=== PATIENT | male | born 1930 | race Hispanic/Latino ===

== ENCOUNTER 2020-03-30 15:18 | Inpatient (IN) | payer MEDICARE ==
[~2020-03-30] VITALS: Ht 180.3 cm; Wt 74.9 kg
[2020-03-30 15:44] LABS: BASOPHILS % (AUTO) 0.5 % (0.0-5.0); EOSINOPHILS % (AUTO) 2.1 % (0.0-8.0); HEMATOCRIT 28.6 % (42-54); LYMPHOCYTES % (AUTO) 16.8 % (21.0-51.0); MEAN CORPUSCULAR HEMOGLOBIN 29.4 pg (27.0-33.0); MEAN CORPUSCULAR HGB CONC 32.2 g/dL (32.0-36.0); MEAN CORPUSCULAR VOLUME 91.4 fL (79-99); MONOCYTES % (AUTO) 12.2 % (3.0-13.0); NEUTROPHILS % (AUTO) 68.1 % (40.0-77.0); PLATELET COUNT (AUTO) 224 K/uL (130-400); RED BLOOD CELL COUNT(AUTO) 3.13 MIL/uL (4.50-6.20); RED CELL DISTRIBUTION WIDTH 17.5 % (11.0-15.5); WHITE BLOOD COUNT (AUTO) 5.8 K/uL (4.8-10.8)
[2020-03-30 15:54] LABS: CREATININE 1.2 mg/dL (0.5-1.5); POTASSIUM 4.1 mmol/L (3.5-5.1)
[2020-03-30 15:57] LABS: INR 1.13 (0.85-1.15); PARTIAL THROMBOPLASTIN TIME 27.5 SEC (26.3-35.5); PROTHROMBIN TIME 12.1 SEC (9.6-11.6)
[2020-03-30 15:58] LABS: BILIRUBIN,TOTAL 0.3 mg/dL (0.2-1.0)
[2020-03-30] MEDS ORDERED: ACETAMINOPHEN 325 MG TAB PO PRN (19:00)
[2020-03-30] MEDS ORDERED: ONDANSETRON HCL 4 MG/2 ML VIAL IV PRN (19:00)
[2020-03-30] MEDS ORDERED: FAMOTIDINE 20MG TAB 20 MG TAB ONE (20:40)
[2020-03-30 22:22] VITALS: BP 164/99
[2020-03-31] VITALS (26 sets, daily range): BP systolic 117–148; BP diastolic 67–120
[2020-03-31] MEDS ORDERED: FERR-82 PO (00:47)
[2020-03-31] MEDS ORDERED: AEC81 PO (00:47)
[2020-03-31] MEDS ORDERED: TAMS-1 PO (00:47)
[2020-03-31] MEDS ORDERED: ATOR10 PO (00:47)
[2020-03-31] MEDS ORDERED: CHOL500051 PO (00:47)
[2020-03-31] MEDS ORDERED: MULT-1289 PO (00:47)
[2020-03-31] MEDS ORDERED: LATA7.5D OP (00:47)
[2020-03-31] MEDS ORDERED: DORZ10DR9 OU (00:47)
[2020-03-31] MEDS ORDERED: FURO20TA4 PO (00:47)
[2020-03-31] MEDS ORDERED: ASCO100031 PO (00:47)
[2020-03-31] MEDS ORDERED: NITR100C PO (00:47)
[2020-03-31] MEDS ORDERED: CYAN25002 PO (00:47)
[2020-03-31] MEDS ORDERED: LOSA100T58 PO (00:47)
[2020-03-31] MEDS ORDERED: FINA5TAB41 PO (00:47)
[2020-03-31] MEDS ORDERED: LEVO75TA10 PO (00:47)
[2020-03-31] MEDS ORDERED: POTA-9 PO (00:47)
[2020-03-31 05:03] LABS: BASOPHILS % (AUTO) 0.8 % (0.0-5.0); HEMATOCRIT 28.3 % (42-54); MEAN CORPUSCULAR HEMOGLOBIN 29.1 pg (27.0-33.0); MEAN CORPUSCULAR HGB CONC 32.2 g/dL (32.0-36.0); MEAN CORPUSCULAR VOLUME 90.4 fL (79-99); MONOCYTES % (AUTO) 14.8 % (3.0-13.0); NEUTROPHILS % (AUTO) 63.2 % (40.0-77.0); PLATELET COUNT (AUTO) 223 K/uL (130-400); RED BLOOD CELL COUNT(AUTO) 3.13 MIL/uL (4.50-6.20); RED CELL DISTRIBUTION WIDTH 17.6 % (11.0-15.5); WHITE BLOOD COUNT (AUTO) 6.2 K/uL (4.8-10.8)
[2020-03-31 05:18] LABS: CREATININE 1.1 mg/dL (0.5-1.5); POTASSIUM 3.8 mmol/L (3.5-5.1)
--- NOTE | 2020-03-31 08:15 | NUR ---
[facility] CONSULT DR. JJ ELECTRICAL SUBCONTRACTOR FOR [facility]. CHARLES ROSALES TO [facility] ANSWERING SERVICE AND INFORMED OF CONSULT. INFORMED THAT PATIENT SEES DR. ANJELICA WILKINS AN OUTPATIENT.
[2020-03-31] MEDS: CHOLECALCIFEROL 125 MCG PO SCH (09:00)
[2020-03-31] MEDS ORDERED: ASPIRIN 81 MG EC TAB PO SCH (09:00)
[2020-03-31] MEDS: DORZOLAMIDE HCL 2% 10ML DROPS OU SCH ×2 (09:08→20:09)
[2020-03-31] MEDS: FAMOTIDINE 20MG TAB 20 MG TAB PO SCH (09:09)
[2020-03-31] MEDS: MULTIVITAMIN WITH MINERALS TABLET PO SCH (09:11)
[2020-03-31] MEDS: LEVOTHYROXINE 75 MCG TABLET PO SCH (09:12)
[2020-03-31] MEDS: ASCORBIC ACID 500 MG TAB PO SCH (09:12)
[2020-03-31] MEDS: FERROUS SULFATE 325 MG TABLET.DR PO SCH (09:12)
[2020-03-31] MEDS: LOSARTAN 100 MG TABLET PO SCH (09:12)
[2020-03-31] MEDS: CYANOCOBALAMIN (VITAMIN B-12) 1,000 MCG TABLET PO SCH (09:12)
[2020-03-31] MEDS: FUROSEMIDE 20 MG TABLET PO SCH (09:12)
--- NOTE | 2020-03-31 10:00 | NUR ---
GODWIN BELLAMY PA FOR DR. JJ ROUNDING AT THIS TIME
--- NOTE | 2020-03-31 11:45 | NUR ---
NURSE FOR DR. LAURA RODRÍGUEZ, NURSE FOR DR. SANCHEZ HERE TO SEE PATIENT. INFORMED ME THAT SHE SPOKE TO PATIENT REGARDING PROCEDURE AND THAT IF PATIENTS DAUGHTER HAD ANY QUESTIONS WHEN SHE ARRIVES THAT IT IS OKAY TO CALL ANNE WITH QUESTIONS PATIENTS DAUGHTER MAY HAVE.
[2020-03-31] MEDS: CEFTRIAXONE SODIUM 1 GM IVP SCH (12:24)
--- NOTE | 2020-03-31 12:25 | NUR ---
PATIENT FAMILY CALLED PATIENTS DAUGHTER, Emir TAMEZ [phone], TO ASK WHEN SHE WOULD ARRIVE TO BE PRESENT WHEN PATIENT SIGNS INFORMED CONSENT DUE TO PATIENTS AGE. Emir TAMEZ TOLD ME THAT SHE WAS ON HER WAY TO THE HOSPITAL NOW.
[2020-03-31] MEDS ORDERED: ONDANSETRON HCL 4 MG/2 ML VIAL ONE (12:32)
[2020-03-31] MEDS ORDERED: LIDOCAINE PF 2% 5ML ABBOJECT ONE (12:32)
[2020-03-31] MEDS ORDERED: FENTANYL CITRATE PF 50 MCG/1 ML 2ML VIAL ONE (12:33)
[2020-03-31] MEDS ORDERED: DEXAMETHASONE SOD PHOSPHATE 10MG/ML 1ML VIAL ONE (12:33)
[2020-03-31] MEDS ORDERED: MIDAZOLAM HCL 1 MG/ML 2ML VIAL ONE (12:33)
[2020-03-31] MEDS ORDERED: PROPOFOL 10 MG/ML 20ML VIAL IV ONE (12:33)
[2020-03-31] MEDS ORDERED: SUCCINYLCHOLINE CHLORIDE 20 MG/ML 10 ML VIAL ONE (12:34)
[2020-03-31] MEDS ORDERED: ALBUMIN (HUMAN) 25% 150 ML IV ONE (12:34)
[2020-03-31] MEDS ORDERED: ROCURONIUM 10MG/1ML SYR 10 MG/ML ML ONE (12:37)
[2020-03-31] MEDS ORDERED: LACTATED RINGERS 1000ML 1,000 ML IV ONE (13:05)
[2020-03-31] MEDS: CEFAZOLIN SODIUM 1 GM VIAL IVP PRN ×2 (13:08→13:45)
[2020-03-31] MEDS ORDERED: MEPERIDINE-PF 25 MG/ML SYG ONE (13:43)
[2020-03-31] MEDS ORDERED: EPHEDRINE SULFATE 50 MG/ML AMPULE ONE (13:56)
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
--- NOTE | 2020-03-31 15:10 | NUR ---
LEFT RADIAL ARTERIAL LINE D/C'D PER [facility] PHYSICIAN RELATIONS REPRESENTATIVE ORDER, PRESSURE HELD X5 MINUTES, NO BLEEDING NOTED, PT TOLERATED WELL
[2020-03-31 16:44] LABS: PH, BODY FLUID 8
[2020-03-31 16:53] LABS: AMYLASE,BODY FLUID 67 U/L; GLUCOSE,BODY FLUID 83 mg/dL (1-40)
[2020-03-31 17:16] LABS: APPEARANCE BODY FLUID BLOODY (CLEAR); COLOR,BODY FLUID RED (LT YELLOW); SPECIMENTYPE,BODY FLUID PERICARDIAL; TOTAL VOLUME,BODY FLUID 90 mL
[2020-03-31 17:18] LABS: BODY FLUID WBC 237 /cu. mm.
[2020-03-31 17:24] LABS: BF EOSINOPHIL 8 %; BF LYMPHOCYTE 62 %
--- NOTE | 2020-03-31 18:10 | NUR ---
PAGED HOSPITALIST PATIENT REPORTS PAIN 8/10 TO INCISION SITE. NEED PRN PAIN MED FOR REPORTED PAIN SCALE
[2020-03-31] MEDS: MORPHINE SULFATE 2 MG/ML 1ML SYG IVP PRN ×2 (18:20→20:08)
--- NOTE | 2020-03-31 18:55 | NUR ---
HEART RHYTHM RECEIVED CALL FROM Hello Curry THAT PATIENT HR IN THE 110'S, HIGHEST 120. PATIENT ASYMPTOMATIC. REPORTED FINDINGS TO Geoffrey SALDANA NP.
--- NOTE | 2020-03-31 19:15 | NUR ---
12 LEAD EKG SPOKE TO Geoffrey SALDANA NP FOR HOSPITALIST TO REPORT 12 LEAD EKG RESULTS. REPLIED TO MONITOR FOR NOW.
[2020-03-31] MEDS: ATORVASTATIN CALCIUM 10 MG TABLET PO SCH (20:08)
[2020-03-31] MEDS: FINASTERIDE 5 MG TABLET PO SCH (20:08)
[2020-03-31] MEDS: TAMSULOSIN HCL 0.4 MG CAP.ER.24H PO SCH (20:08)
[2020-03-31] MEDS: LATANOPROST 2.5 ML DROPS OP SCH (20:09)
[2020-03-31] MEDS ORDERED: HYDROMORPHONE HCL 2 MG/ML VIAL ONE (20:54)
[2020-03-31] MEDS: HYDROMORPHONE HCL 0.5 MG/0.5 ML ML IVP PRN (23:06)
[2020-04-01] VITALS: BP 101/62
[2020-04-01 04:10] VITALS: BP 96/57
[2020-04-01 06:12] LABS: BASOPHILS % (AUTO) 0.1 % (0.0-5.0); HEMATOCRIT 27.4 % (42-54); MEAN CORPUSCULAR HEMOGLOBIN 28.9 pg (27.0-33.0); MEAN CORPUSCULAR HGB CONC 32.1 g/dL (32.0-36.0); MEAN CORPUSCULAR VOLUME 89.8 fL (79-99); MONOCYTES % (AUTO) 11.7 % (3.0-13.0); NEUTROPHILS % (AUTO) 78.7 % (40.0-77.0); PLATELET COUNT (AUTO) 243 K/uL (130-400); RED BLOOD CELL COUNT(AUTO) 3.05 MIL/uL (4.50-6.20); RED CELL DISTRIBUTION WIDTH 17.7 % (11.0-15.5); WHITE BLOOD COUNT (AUTO) 10.4 K/uL (4.8-10.8)
[2020-04-01 06:42] LABS: CREATININE 1.5 mg/dL (0.5-1.5); POTASSIUM 4.2 mmol/L (3.5-5.1); TROPONIN I 0.07 ng/mL (0.00-0.06)
[2020-04-01] MEDS: LEVOTHYROXINE 75 MCG TABLET PO SCH (06:43)
[2020-04-01 08:00] VITALS: BP 102/68
[2020-04-01] MEDS: ASCORBIC ACID 500 MG TAB PO SCH (08:51)
[2020-04-01] MEDS: CYANOCOBALAMIN (VITAMIN B-12) 1,000 MCG TABLET PO SCH (08:51)
[2020-04-01] MEDS: FERROUS SULFATE 325 MG TABLET.DR PO SCH (08:51)
[2020-04-01] MEDS: MULTIVITAMIN WITH MINERALS TABLET PO SCH (08:51)
[2020-04-01] MEDS: FAMOTIDINE 20MG TAB 20 MG TAB PO SCH (08:51)
[2020-04-01] MEDS: CHOLECALCIFEROL 125 MCG PO SCH (08:52)
[2020-04-01] MEDS: DORZOLAMIDE HCL 2% 10ML DROPS OU SCH ×2 (08:52→20:29)
[2020-04-01] MEDS: FUROSEMIDE 20 MG TABLET PO SCH (09:00)
[2020-04-01] MEDS: LOSARTAN 100 MG TABLET PO SCH (09:00)
[2020-04-01] MEDS ORDERED: CEFTRIAXONE SODIUM 500 MG VIAL IV SCH (09:00)
[2020-04-01] MEDS ORDERED: DOCUSATE SODIUM 100 MG CAP PO SCH (11:15)
--- NOTE | 2020-04-01 11:25 | NUR ---
1105 pt signed IM Letter, I faxed IM Letter to [phone] and placed in chart under consent tab.
[2020-04-01 11:30] VITALS: BP 85/54
[2020-04-01] MEDS: CEFTRIAXONE SODIUM 1 GM IVP SCH (13:50)
[2020-04-01 16:00] VITALS: BP 92/52
[2020-04-01] MEDS: LACTULOSE 20 GM/30 ML UDCUP PO PRN (18:50)
[2020-04-01 19:10] VITALS: BP 126/76
[2020-04-01] MEDS: ATORVASTATIN CALCIUM 10 MG TABLET PO SCH (20:29)
[2020-04-01] MEDS: TAMSULOSIN HCL 0.4 MG CAP.ER.24H PO SCH (20:29)
[2020-04-01] MEDS: FINASTERIDE 5 MG TABLET PO SCH (20:29)
[2020-04-01] MEDS: LATANOPROST 2.5 ML DROPS OP SCH (20:29)
[2020-04-02] VITALS (7 sets, daily range): BP systolic 93–120; BP diastolic 40–70
--- NOTE | 2020-04-02 03:35 | NUR ---
PATIENT A/OX3. RESTING IN BED. DENIES CHEST PAIN OR SOB. ON ROOM AIR. CHEST TUBE IN PLACE WITH SEROSANGUINEOUS DRAINAGE. WILL CONTINUE TO MONITOR. CALL LIGHT WITHIN PLACE. ROOM ACROSS NURSES STATION.
[2020-04-02 03:45] LABS: BASOPHILS % (AUTO) 0.3 % (0.0-5.0); EOSINOPHILS % (AUTO) 0.9 % (0.0-8.0); HEMATOCRIT 28.4 % (42-54); LYMPHOCYTES % (AUTO) 14.3 % (21.0-51.0); MEAN CORPUSCULAR HEMOGLOBIN 28.8 pg (27.0-33.0); MEAN CORPUSCULAR HGB CONC 32.4 g/dL (32.0-36.0); MEAN CORPUSCULAR VOLUME 88.8 fL (79-99); NEUTROPHILS % (AUTO) 69.1 % (40.0-77.0); PLATELET COUNT (AUTO) 233 K/uL (130-400); RED CELL DISTRIBUTION WIDTH 18.1 % (11.0-15.5); WHITE BLOOD COUNT (AUTO) 9.1 K/uL (4.8-10.8)
[2020-04-02 04:03] LABS: ALBUMIN 2.8 g/dL (3.5-5.0); BILIRUBIN,TOTAL 0.3 mg/dL (0.2-1.0); CREATININE 1.5 mg/dL (0.5-1.5); POTASSIUM 3.7 mmol/L (3.5-5.1); TOTAL PROTEIN, SERUM 8.3 g/dL (6.0-8.3)
[2020-04-02] MEDS: LEVOTHYROXINE 75 MCG TABLET PO SCH (06:16)
[2020-04-02] MEDS: HYDROMORPHONE HCL 0.5 MG/0.5 ML ML IVP PRN (06:19)
[2020-04-02] MEDS: FAMOTIDINE 20MG TAB 20 MG TAB PO SCH (07:17)
[2020-04-02] MEDS: FUROSEMIDE 20 MG TABLET PO SCH (07:17)
[2020-04-02] MEDS: ASCORBIC ACID 500 MG TAB PO SCH (07:17)
[2020-04-02] MEDS: CHOLECALCIFEROL 125 MCG PO SCH (07:17)
[2020-04-02] MEDS: CYANOCOBALAMIN (VITAMIN B-12) 1,000 MCG TABLET PO SCH (07:17)
[2020-04-02] MEDS: FERROUS SULFATE 325 MG TABLET.DR PO SCH (07:17)
[2020-04-02] MEDS: MULTIVITAMIN WITH MINERALS TABLET PO SCH (07:17)
[2020-04-02] MEDS: DORZOLAMIDE HCL 2% 10ML DROPS OU SCH ×2 (07:18→21:58)
[2020-04-02] MEDS: LOSARTAN 100 MG TABLET PO SCH (07:18)
--- NOTE | 2020-04-02 08:00 | NUR ---
ASSESSMENT PT IS AAOX3 DENIES CP DENIES SOB DENIES NV NO COMPLAINTS AT THIS TIME. SITTING UPRIGHT IN BED, LEFT CHEST TUBE IS IN PLACE, SECURED TO [employer] COLLECTION. NO CREPITUS NOTED NO AIR LEAK NOTED. AM MEDS GIVEN. CALL LIGHT WITHIN REACH.
--- NOTE | 2020-04-02 08:30 | NUR ---
AM COZAAR NOT GIVEN DECREASED BP. PT REMAINS AAOX3 DENIES DIZZINESS DENIES LIGHTHEADEDNESS.
[2020-04-02] MEDS: CEFTRIAXONE SODIUM 1 GM IVP SCH (10:43)
[2020-04-02] MEDS: LACTULOSE 20 GM/30 ML UDCUP PO PRN (10:43)
[2020-04-02] MEDS ORDERED: SIMETHICONE 80 MG TAB.CHEW PO PRN (11:00)
--- NOTE | 2020-04-02 11:00 | NUR ---
MD ROUNDS DR DRUMMOND AND DR MENARD ROUNDED
--- NOTE | 2020-04-02 14:41 | NUR ---
DR WAN ROUNDED SAW PATIENT, MAINTAIN CHEST TUBE IN PLACE
--- NOTE | 2020-04-02 16:30 | NUR ---
ASSISTED UP TO BEDSIDE COMMODE PATIENT PASSED GAS, NO BM. ASSISTED BACK TO BED. CALL LIGHT WITHIN REACH.
[2020-04-02] MEDS: TAMSULOSIN HCL 0.4 MG CAP.ER.24H PO SCH (21:57)
[2020-04-02] MEDS: FINASTERIDE 5 MG TABLET PO SCH (21:57)
[2020-04-02] MEDS: MORPHINE SULFATE 2 MG/ML 1ML SYG IVP PRN (21:57)
[2020-04-02] MEDS: ATORVASTATIN CALCIUM 10 MG TABLET PO SCH (21:57)
[2020-04-02] MEDS: LATANOPROST 2.5 ML DROPS OP SCH (21:58)
[2020-04-03 03:25] VITALS: BP 118/70
[2020-04-03 06:25] LABS: BASOPHILS % (AUTO) 0.4 % (0.0-5.0); HEMATOCRIT 28.8 % (42-54); MEAN CORPUSCULAR HEMOGLOBIN 29.1 pg (27.0-33.0); MEAN CORPUSCULAR HGB CONC 31.9 g/dL (32.0-36.0); MEAN CORPUSCULAR VOLUME 91.1 fL (79-99); MONOCYTES % (AUTO) 16.4 % (3.0-13.0); NEUTROPHILS % (AUTO) 61.8 % (40.0-77.0); PLATELET COUNT (AUTO) 257 K/uL (130-400); RED BLOOD CELL COUNT(AUTO) 3.16 MIL/uL (4.50-6.20); RED CELL DISTRIBUTION WIDTH 18.4 % (11.0-15.5); WHITE BLOOD COUNT (AUTO) 8.1 K/uL (4.8-10.8)
[2020-04-03 06:33] LABS: ALBUMIN 2.7 g/dL (3.5-5.0); BILIRUBIN,TOTAL 0.4 mg/dL (0.2-1.0); CREATININE 1.3 mg/dL (0.5-1.5); POTASSIUM 3.5 mmol/L (3.5-5.1); TOTAL PROTEIN, SERUM 8.2 g/dL (6.0-8.3)
[2020-04-03] MEDS: LEVOTHYROXINE 75 MCG TABLET PO SCH (06:51)
[2020-04-03 08:00] VITALS: BP 102/42
[2020-04-03] MEDS: FAMOTIDINE 20MG TAB 20 MG TAB PO SCH (08:45)
[2020-04-03] MEDS: LOSARTAN 50 MG TABLET PO SCH (08:45)
[2020-04-03] MEDS: FERROUS SULFATE 325 MG TABLET.DR PO SCH (08:45)
[2020-04-03] MEDS: ASCORBIC ACID 500 MG TAB PO SCH (08:45)
[2020-04-03] MEDS: CYANOCOBALAMIN (VITAMIN B-12) 1,000 MCG TABLET PO SCH (08:46)
[2020-04-03] MEDS: METOPROLOL TARTRATE 25 MG TAB PO SCH ×2 (08:46→20:53)
[2020-04-03] MEDS: FUROSEMIDE 20 MG TABLET PO SCH (08:46)
[2020-04-03] MEDS: MULTIVITAMIN WITH MINERALS TABLET PO SCH (08:46)
[2020-04-03] MEDS: CHOLECALCIFEROL 125 MCG PO SCH (08:46)
[2020-04-03] MEDS: DORZOLAMIDE HCL 2% 10ML DROPS OU SCH ×2 (08:49→20:48)
[2020-04-03] MEDS: LACTULOSE 20 GM/30 ML UDCUP PO PRN (08:52)
--- NOTE | 2020-04-03 10:51 | NUR ---
DR. Tamar MEYERS IN ROOM SPEAKING WITH PT. RE:PLAN OF CARE. QUESTIONS ANSWERED. MALE VISITOR AT BEDSIDE.
[2020-04-03] MEDS ORDERED: MINERAL OIL 30 ML UDCUP PO SCH (11:00)
[2020-04-03] MEDS: CEFTRIAXONE SODIUM 1 GM IVP SCH (11:01)
[2020-04-03 12:00] VITALS: BP 95/55
[2020-04-03] MEDS: MORPHINE SULFATE 2 MG/ML 1ML SYG IVP PRN (12:51)
--- NOTE | 2020-04-03 13:10 | NUR ---
CHEST TUBE REMOVED AFTER PT. ASSISTED BACK TO BED, INSTRUCTED ON PROCEDURE AND PREMEDICATED. C.T. REMOVED WITH ASSISTANCE FROM Dione YOU, PCP. PT. TOLERATED WELL. LIGHT DRSG APPLIED. CALL LIGHT WITHIN REACH, VERBALIZED ABILITY TO USE. BED LOW, SIDE RAILS UP X2.
--- NOTE | 2020-04-03 14:43 | NUR ---
CM NOTE/DC PLAN NEW ORDER FOR SNF REFERRAL. MET WITH PATIENT AT BEDSIDE TO DISCUSS DC PLANNING. PATIENT MADE AWARE OF PT RECOMMENDATIONS FOR SNF WELL NURSE CONCERN OF WEAKNESS TO BILATERAL LEGS AND USE OF X2 ASSIST TO TRANSFER FROM BED TO CHAIR. PER PATIENT, DOES NOT WANT TO GO TO SNF AND ONLY WANTS TO GO HOME. PATIENT STATES HE ALWAYS DOES BETTER AT HOME AND ALWAYS WALKS SOON THEY LET HIM START. AGAIN, ENFORCED EDUCATION ON FALLS AND ASKING FOR HELP IF NEEDED, PATIENT VERBALIZED UNDERSTANDING BUT CONTINUES TO DECLINE REFERRAL. PRIMARY NURSE DEBORAH DANIEL, WELL , DR. MEYERS MADE AWARE.
[2020-04-03 16:00] VITALS: BP 134/76
--- NOTE | 2020-04-03 16:27 | NUR ---
CM NOTE/[facility] JULISSA COMPLETED FOR [facility], SERVICES PRIOR TO ADMISSION. TAYLOR AT [facility] MADE AWARE OF PENDING REFERRAL, CLINICAL PACKET FAXED. CM TO FOLLOW UP FOR APPROVAL.
--- NOTE | 2020-04-03 16:58 | NUR ---
Dougie FELICIANO NP, IN ROOM SPEAKING WITH PT. RE:PLAN OF CARE.
[2020-04-03 20:10] VITALS: BP 106/59
[2020-04-03] MEDS: FINASTERIDE 5 MG TABLET PO SCH (20:45)
[2020-04-03] MEDS: TAMSULOSIN HCL 0.4 MG CAP.ER.24H PO SCH (20:46)
[2020-04-03] MEDS: ATORVASTATIN CALCIUM 10 MG TABLET PO SCH (20:46)
[2020-04-03] MEDS: LATANOPROST 2.5 ML DROPS OP SCH (20:48)
[2020-04-03 23:02] VITALS: BP 93/58
[2020-04-04] VITALS (7 sets, daily range): BP systolic 88–127; BP diastolic 51–67
[2020-04-04 06:00] LABS: BASOPHILS % (AUTO) 0.7 % (0.0-5.0); HEMATOCRIT 27.2 % (42-54); LYMPHOCYTES % (AUTO) 17.4 % (21.0-51.0); MEAN CORPUSCULAR HEMOGLOBIN 28.9 pg (27.0-33.0); MEAN CORPUSCULAR VOLUME 90.4 fL (79-99); MONOCYTES % (AUTO) 16.6 % (3.0-13.0); NEUTROPHILS % (AUTO) 61.9 % (40.0-77.0); PLATELET COUNT (AUTO) 274 K/uL (130-400); RED BLOOD CELL COUNT(AUTO) 3.01 MIL/uL (4.50-6.20); RED CELL DISTRIBUTION WIDTH 18.2 % (11.0-15.5); WHITE BLOOD COUNT (AUTO) 8.4 K/uL (4.8-10.8)
[2020-04-04] MEDS: LEVOTHYROXINE 75 MCG TABLET PO SCH (06:03)
[2020-04-04 06:39] LABS: ALBUMIN 2.5 g/dL (3.5-5.0); BILIRUBIN,TOTAL 0.5 mg/dL (0.2-1.0); CREATININE 1.4 mg/dL (0.5-1.5); POTASSIUM 3.5 mmol/L (3.5-5.1); TOTAL PROTEIN, SERUM 7.7 g/dL (6.0-8.3)
[2020-04-04] MEDS: LOSARTAN 50 MG TABLET PO SCH (07:40)
[2020-04-04] MEDS: FUROSEMIDE 20 MG TABLET PO SCH (08:14)
[2020-04-04] MEDS: METOPROLOL TARTRATE 25 MG TAB PO SCH ×2 (08:14→21:35)
[2020-04-04] MEDS: FAMOTIDINE 20MG TAB 20 MG TAB PO SCH (08:14)
[2020-04-04] MEDS: MULTIVITAMIN WITH MINERALS TABLET PO SCH (08:14)
[2020-04-04] MEDS: ASCORBIC ACID 500 MG TAB PO SCH (08:15)
[2020-04-04] MEDS: FERROUS SULFATE 325 MG TABLET.DR PO SCH (08:15)
[2020-04-04] MEDS: CYANOCOBALAMIN (VITAMIN B-12) 1,000 MCG TABLET PO SCH (08:15)
[2020-04-04] MEDS: DORZOLAMIDE HCL 2% 10ML DROPS OU SCH ×2 (08:16→21:48)
[2020-04-04] MEDS: CHOLECALCIFEROL 125 MCG PO SCH (08:17)
[2020-04-04] MEDS: CEFTRIAXONE SODIUM 1 GM IVP SCH (11:21)
--- NOTE | 2020-04-04 13:01 | NUR ---
DR. Matt GUAN IN ROOM SPEAKING WITH PT.
--- NOTE | 2020-04-04 13:48 | NUR ---
ASSISTED BACK TO BED FROM RECLINER AT BEDSIDE PER PT. REQUEST.CALL LIGHT WITHIN REACH, VERBALIZED ABILITY TO USE. PT. REQUESTED ROOM DOOR CLOSED, COMPLIED.
[2020-04-04] MEDS: LACTULOSE 20 GM/30 ML UDCUP PO PRN (18:02)
[2020-04-04] MEDS: ATORVASTATIN CALCIUM 10 MG TABLET PO SCH (21:35)
[2020-04-04] MEDS: TAMSULOSIN HCL 0.4 MG CAP.ER.24H PO SCH (21:35)
[2020-04-04] MEDS: FINASTERIDE 5 MG TABLET PO SCH (21:35)
[2020-04-04] MEDS: LATANOPROST 2.5 ML DROPS OP SCH (21:48)
[2020-04-04] MEDS: ACETAMINOPHEN 325 MG TAB PO PRN (21:48)
[2020-04-05 04:00] VITALS: BP 90/50
[2020-04-05] MEDS: LEVOTHYROXINE 75 MCG TABLET PO SCH (05:13)
[2020-04-05 07:24] VITALS: BP 101/54
[2020-04-05] MEDS: CHOLECALCIFEROL 125 MCG PO SCH (07:42)
[2020-04-05] MEDS: ASCORBIC ACID 500 MG TAB PO SCH (08:06)
[2020-04-05] MEDS: FAMOTIDINE 20MG TAB 20 MG TAB PO SCH (08:06)
[2020-04-05] MEDS: LOSARTAN 50 MG TABLET PO SCH ×2 (08:06→08:08)
[2020-04-05] MEDS: FERROUS SULFATE 325 MG TABLET.DR PO SCH (08:06)
[2020-04-05] MEDS: METOPROLOL TARTRATE 25 MG TAB PO SCH ×2 (08:06→21:17)
[2020-04-05] MEDS: CYANOCOBALAMIN (VITAMIN B-12) 1,000 MCG TABLET PO SCH (08:07)
[2020-04-05] MEDS: FUROSEMIDE 20 MG TABLET PO SCH (08:07)
[2020-04-05] MEDS: MULTIVITAMIN WITH MINERALS TABLET PO SCH (08:07)
[2020-04-05] MEDS: DORZOLAMIDE HCL 2% 10ML DROPS OU SCH ×2 (08:07→21:17)
[2020-04-05 10:48] VITALS: BP 101/61
--- NOTE | 2020-04-05 10:50 | NUR ---
DR. Tamar MEYERS IN ROOM SPEAKING WITH PT. AND ANSWERING QUESTIONS.
[2020-04-05] MEDS: CEPHALEXIN 500 MG CAPSULE PO SCH ×2 (11:45→22:32)
[2020-04-05] MEDS: CEFTRIAXONE SODIUM 1 GM IVP SCH (11:46)
--- NOTE | 2020-04-05 13:37 | NUR ---
DR. Matt GUAN IN ROOM WITH PT.
[2020-04-05] MEDS: MINERAL OIL 30 ML UDCUP PO SCH ×2 (15:00→16:57)
[2020-04-05] MEDS: LACTULOSE 20 GM/30 ML UDCUP PO SCH ×2 (15:00→16:57)
[2020-04-05 15:39] VITALS: BP 100/56
[2020-04-05] MEDS: PSYLLIUM SEED 1 EACH PACKET PO SCH (16:57)
[2020-04-05 20:07] VITALS: BP 108/61
[2020-04-05] MEDS: LATANOPROST 2.5 ML DROPS OP SCH (21:17)
[2020-04-05] MEDS: ATORVASTATIN CALCIUM 10 MG TABLET PO SCH (21:17)
[2020-04-05] MEDS: FINASTERIDE 5 MG TABLET PO SCH (21:17)
[2020-04-05] MEDS: TAMSULOSIN HCL 0.4 MG CAP.ER.24H PO SCH (21:17)
[2020-04-05] MEDS: ACETAMINOPHEN 325 MG TAB PO PRN (22:31)
[2020-04-05 23:40] VITALS: BP 104/59
[2020-04-06 03:50] VITALS: BP 110/64
[2020-04-06 05:24] LABS: BASOPHILS % (AUTO) 0.5 % (0.0-5.0); EOSINOPHILS % (AUTO) 3.7 % (0.0-8.0); HEMATOCRIT 26.4 % (42-54); LYMPHOCYTES % (AUTO) 21.4 % (21.0-51.0); MEAN CORPUSCULAR HEMOGLOBIN 28.9 pg (27.0-33.0); MEAN CORPUSCULAR HGB CONC 31.8 g/dL (32.0-36.0); MEAN CORPUSCULAR VOLUME 90.7 fL (79-99); MONOCYTES % (AUTO) 13.9 % (3.0-13.0); NEUTROPHILS % (AUTO) 60.1 % (40.0-77.0); PLATELET COUNT (AUTO) 284 K/uL (130-400); RED BLOOD CELL COUNT(AUTO) 2.91 MIL/uL (4.50-6.20); RED CELL DISTRIBUTION WIDTH 17.5 % (11.0-15.5); WHITE BLOOD COUNT (AUTO) 5.7 K/uL (4.8-10.8)
[2020-04-06] MEDS: LEVOTHYROXINE 75 MCG TABLET PO SCH (05:45)
[2020-04-06 05:56] LABS: ALBUMIN 2.4 g/dL (3.5-5.0); BILIRUBIN,TOTAL 0.2 mg/dL (0.2-1.0); CREATININE 1.2 mg/dL (0.5-1.5); POTASSIUM 3.2 mmol/L (3.5-5.1); TOTAL PROTEIN, SERUM 7.9 g/dL (6.0-8.3)
[2020-04-06] MEDS ORDERED: POTASSIUM CHLORIDE 10% ELIXIR 20 MEQ/15 ML UDCUP PO PRN (06:15)
[2020-04-06] MEDS ORDERED: POTASSIUM CHLORIDE 20 MEQ ERTAB PO PRN (06:15)
[2020-04-06] MEDS ORDERED: CEPH500B PO (08:30)
[2020-04-06] MEDS: CHOLECALCIFEROL 125 MCG PO SCH (09:00)
[2020-04-06 09:21] VITALS: BP 98/54
[2020-04-06] MEDS: FAMOTIDINE 20MG TAB 20 MG TAB PO SCH (10:09)
[2020-04-06] MEDS: ASCORBIC ACID 500 MG TAB PO SCH (10:10)
[2020-04-06] MEDS: FUROSEMIDE 20 MG TABLET PO SCH (10:10)
[2020-04-06] MEDS: LOSARTAN 50 MG TABLET PO SCH (10:11)
[2020-04-06] MEDS: FERROUS SULFATE 325 MG TABLET.DR PO SCH (10:11)
[2020-04-06] MEDS: MULTIVITAMIN WITH MINERALS TABLET PO SCH (10:11)
[2020-04-06] MEDS: CYANOCOBALAMIN (VITAMIN B-12) 1,000 MCG TABLET PO SCH (10:11)
[2020-04-06] MEDS: METOPROLOL TARTRATE 25 MG TAB PO SCH (10:11)
[2020-04-06] MEDS: PSYLLIUM SEED 1 EACH PACKET PO SCH (10:14)
[2020-04-06] MEDS: CEPHALEXIN 500 MG CAPSULE PO SCH (10:15)
[2020-04-06] MEDS: DORZOLAMIDE HCL 2% 10ML DROPS OU SCH (10:18)
[2020-04-06] MEDS ORDERED: FLU VACC QS2020-21(6MOS UP)/PF 60 MCG/0.5 ML ML IM SCH (11:30)
[2020-04-06] MEDS ORDERED: FLU VACC QS2020-21(6MOS UP)/PF 60 MCG/0.5 ML ML IM ONE (11:30)
[2020-04-06] MEDS: CEFTRIAXONE SODIUM 1 GM IVP SCH (12:00)
[2020-04-06 12:05] VITALS: BP 139/78
--- NOTE | 2020-04-06 13:45 | NUR ---
DC PT AWAKE AND ALERT, DC HOME INSTRUCTIONS GIVE TO PT, ACKNOWLEDGED DISCHARGE INFORMATION, ALL QUESTIONS ANSWERED. MADE AWARE PRESCRIPTION SENT ELECTRONICALLY TO PHARMACY. MADE AWARE OF F/U APPOINTMENTS WITH [facility] OUTPATIENT INCLUDING DR SANCHEZ ON APR 14, 2020 @ 10 AM IN [place]. FLU VACCINE ADMINISTERED; LOT # [id number]. PATIENT MADE AWARE TO RETURN TO ER OR DIAL 911 IN CASE OF EMERGENCY.
[2020-04-06] MEDS ORDERED: PSYLLIUM SEED 1 EACH PACKET PO SCH (15:00)
--- NOTE | 2020-04-08 12:45 | NUR ---
Transitional Care - Post Discharge Note Spoke with patient at number listed. As per Mr Miramontes, he is doing well. 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 He did mention he was taking discharge medications as ordered. Mr Miramontes was made aware and understands that he must follow up with his doctors. He is in agreement and assures me he will follow up as soon as his security patrol driver is able. He also mentioned an upcoming appointment with Dr Wilson on April 12 he intends to keep. Addendum: 04/08/20 at 1250 by GARDENIA COOK Amended: Links added.
== END 2020-04-06 13:55 | disposition home health service (06) | DRG 270 ==
LOC: EDH 15:18 → EDHIP 18:55 → OBSVTOIN 18:55 → 4CH 21:55
PROVIDERS: ADMIT Family Medicine; ATTEND Family Medicine
PROC: 02BN0ZX Excision of Pericardium, Open Approach, Diagnostic (ICD-10-PCS; 2020-03-31)
PROC: 0W9D0ZZ Drainage of Pericardial Cavity, Open Approach (ICD-10-PCS; principal; 2020-03-31 14:00)
PROC: 3E02340 Introduction of Influenza Vaccine into Muscle, Percutaneous Approach (ICD-10-PCS; 2020-04-06)
DX: I31.3 Pericardial effusion (noninflammatory) (principal); I50.31 Acute diastolic (congestive) heart failure; I44.2 Atrioventricular block, complete; N39.0 Urinary tract infection, site not specified; I48.20 Chronic atrial fibrillation, unspecified; E87.1 Hypo-osmolality and hyponatremia; I31.4 Cardiac tamponade; J98.6 Disorders of diaphragm; L30.9 Dermatitis, unspecified; E03.9 Hypothyroidism, unspecified; E78.5 Hyperlipidemia, unspecified; I87.2 Venous insufficiency (chronic) (peripheral); I87.309 Chronic venous hypertension (idiopathic) without complications of unspecified lower extremity; K59.09 Other constipation; B96.89 Other specified bacterial agents as the cause of diseases classified elsewhere; I25.10 Atherosclerotic heart disease of native coronary artery without angina pectoris; N40.1 Benign prostatic hyperplasia with lower urinary tract symptoms; R06.89 Other abnormalities of breathing; R09.02 Hypoxemia; R33.8 Other retention of urine; I11.0 Hypertensive heart disease with heart failure; D64.9 Anemia, unspecified; Z82.49 Family history of ischemic heart disease and other diseases of the circulatory system; Z23 Encounter for immunization; Z87.891 Personal history of nicotine dependence; Z95.0 Presence of cardiac pacemaker; Z79.899 Other long term (current) drug therapy
CPT/HCPCS: 36415; 71045; 71250; 80048; 80053; 82150; 82550; 82945; 82948; 83615; 83874; 83880; 83986; 84157; 84443; 84484; 85025; 85610; 85730; 86850; 86900; 86901; 87071; 87077; 87088; 87116; 87186; 87205; 87206; 89051; 93005; 93306; 97039; A7048; G0378; J0330; J0690; J0696; J1100; J1170; J2001; J2175; J2250; J2405; J2704; J3010; J3490; J7040; J7120; P9047; Q2035